=== PATIENT | male | born 1970 | race Caucasian/White ===

== ENCOUNTER 2018-07-09 12:27 | Emergency (ER) | payer BC ==
[2018-07-09 14:34] VITALS: BP 125/73
[2018-07-09] MEDS ORDERED: Ketorolac INJ* 60 MG/2 ML VIAL IM ONE (14:59)
--- NOTE | 2018-07-09 15:07 | UC ---
Back Pain HPI - HPI Summary HPI Summary: PATIENT WITH A HISTORY OF CHRONIC LOW BACK PAIN SINCE HIS TEENAGE YEARS PRESENTS WITH ABOUT ONE WEEK OF FLARE OF LOW BACK PAIN. HE STATES HE GETS ACUTE FLARES OF HIS CHRONIC BACK PAIN SEVERAL TIMES A YEAR. HE NORMALLY JUST RIDES IT OUT. TAKES OTC MEDICATIONS WHICH DON'T HELP VERY MUCH. PATIENT STATES THAT THIS TIME THE PAIN WAS VERY SEVERE AND HE DECIDED IT WAS TIME HE HAD IT EVALUATED. DENIES ANY NEW INJURY OR TRAUMA BUT STATES HE DID DO SOME PUSHUPS AND SITUPS AT HOME PRIOR TO ONSET OF SYMPTOMS. NO NUMBNESS/TINGLING. NO LOSS OF BOWEL OR BLADDER CONTROL. NO SADDLE ANESTHESIA. STATES HE HAS NOT HAD ANY IMAGING FOR THIS IN OVER 20 YEARS. PATIENT STATES HE IS A RECOVERING ALCOHOLIC AND DOES NOT WANT ANY NARCOTIC PAIN MEDICATION. - History of Current Complaint Chief Complaint: UCBackPain Stated Complaint: BACK PAIN Time Seen by Provider: 07/09/18 14:32 Hx Obtained From: Patient Onset/Duration: Gradual Onset, Lasting Days, Still Present Timing: Constant Severity Initially: Moderate Severity Currently: Moderate Pain Intensity: 8 Pain Scale Used: 0-10 Numeric Back Pain: Is Discrete @ - LOW BACK Character: Sharp Aggravating Factor(s): Movement Alleviating Factor(s): Rest, Position Associated Signs And Symptoms: Negative: Swelling, Redness, Bruising, Weakness, Numbness, Tingling, Flank Pain, Bladder Incontinence, Bowel Incontinence - Allergies/Home Medications Allergies/Adverse Reactions: Allergies Allergy/AdvReac Type Severity Reaction Status Date / Time No Known Allergies Allergy Verified 07/09/18 14:34 PMH/Surg Hx/FS Hx/Imm Hx - Additional Past Medical History Additional PMH: GOUT, SCOLIOSIS, CHRONIC BACK PAIN Endocrine History: Dyslipidemia Respiratory History: Asthma - Surgical History Surgical History: None - Family History Known Family History: Positive: Non-Contributory - Social History Alcohol Use: Occasionally Substance Use Type: None Smoking Status (MU): Never Smoked Tobacco Review of Systems All Other Systems Reviewed And Are Negative: Yes Constitutional: Positive: Negative Skin: Positive: Negative Respiratory: Positive: Negative Cardiovascular: Positive: Negative Gastrointestinal: Positive: Negative Musculoskeletal: Positive: Arthralgia, Decreased ROM, Myalgia Physical Exam Triage Information Reviewed: Yes Appearance: Well-Appearing, Well-Nourished, Pain Distress - WITH MVMT Vital Signs: Initial Vital Signs Temp 98 F 07/09/18 14:29 Pulse 51 07/09/18 14:29 Resp 16 07/09/18 14:29 BP 125/73 07/09/18 14:29 Pulse Ox 100 07/09/18 14:29 Vital Signs Reviewed: Yes Eyes: Positive: Conjunctiva Clear ENT: Positive: Hearing grossly normal Neck: Positive: Supple Respiratory: Positive: No respiratory distress, No accessory muscle use Cardiovascular: Positive: Pulses Normal Abdomen Description: Positive: Soft Musculoskeletal: Positive: No Edema, ROM Limited @ - BACK, Other: - NOT TENDER OVER SPINE OR PARASPINOUS MUSCLES. NON TENDER LIPOMA Neurological: Positive: Alert, Other: - NEG STRAIGHT LEG RAISE Psychological: Positive: Age Appropriate Behavior Skin: Negative: Rashes Diagnostics - Radiology LUMBARSACRAL XRAYS Radiology Interpretation Completed By: Radiologist Summary of Radiographic Findings: Multilevel mild degenerative spondylosis. Back Pain Course/Dx - Differential Dx/Diagnosis Provider Diagnosis: Acute exacerbation of chronic low back pain Discharge - Sign-Out/Discharge Documenting (check all that apply): Patient Departure All imaging exams completed and their final reports reviewed: Yes - Discharge Plan Condition: Stable Disposition: HOME Prescriptions: Cyclobenzaprine TAB* [Flexeril TAB*] 10 mg PO BID PRN #30 tab PRN Reason: Pain Meloxicam [Mobic] 7.5 mg PO BID PRN #30 tab PRN Reason: Pain Patient Education Materials: Acute Low Back Pain (ED), Chronic Back Pain (DC) Referrals: Leon Coelho MD [Primary Care Provider] - 1 Week Additional Instructions: LOW BACK XRAYS TODAY SHOW MULTILEVEL MILD DEGENERATIVE SPONDYLOSIS. FOLLOW-UP WITH YOUR PCP YOU MAY BENEFIT FROM MORE ADVANCED IMAGING. BASED ON WHAT THIS SHOWS I WOULD RECOMMEND MORE SPECIALIZED FOLLOW-UP WITH EITHER NEUROSURGERY OR THE [facility] IN [place]. YOU HAVE BEEN GIVEN A REFERRAL FOR PHYSICAL THERAPY TODAY WHICH YOU MAY USE AT THE FACILITY OF YOUR CHOICE. TAKE THE FLEXERIL AT NIGHT BEFORE YOU GO TO BED. YOU MAY TAKE IT DURING THE DAY WELL BUT BE AWARE THAT IT MAY MAKE YOU SLEEPY. TAKE THE MELOXICAM TWICE DAILY TO HELP WITH YOUR DISCOMFORT. IF ONE TABLET IS NOT EFFECTIVE YOU MAY TAKE 2 TABLETS AT THE SAME TIME BUT THEN YOU CAN ONLY TAKE IT ONCE DAILY. NO MORE THAN 2 TABLETS IN A 24-HOUR PERIOD. BE SURE TO GO THROUGH SLOW RANGE OF MOTION AND STRETCHING EXERCISES DAILY YOU ARE ABLE TO PREVENT STIFFENING UP AND MAKING THE DISCOMFORT WORSE. GO TO THE ED WITHOUT FAIL IF YOU DEVELOP NUMBNESS/TINGLING IN YOUR LEGS, NUMBNESS IN THE GENITAL REGION, LOSS OF BOWEL/BLADDER CONTROL, INTOLERABLE PAIN OR ANY OTHER CONCERNING SYMPTOMS. [facility] [address] [place], [place] [id number] - Billing Disposition and Condition Condition: STABLE Disposition: Home
== END 2018-07-09 15:48 | disposition home or self-care (01) ==
LOC: UCEAST 12:27
DX: M54.5 Low back pain (principal); G89.29 Other chronic pain; J45.909 Unspecified asthma, uncomplicated
CPT/HCPCS: 72110; 96372; 99212; G0463; J1885

== ENCOUNTER 2018-11-18 11:27 | Emergency (ER) | payer BC ==
[2018-11-18 11:37] VITALS: BP 128/81
--- NOTE | 2018-11-18 11:42 | UC ---
Throat Pain/Nasal Karl HPI - HPI Summary HPI Summary: 48 -year-old male with symptoms of an upper respiratory illness over the past 8 days however with the last 24-48 hours developing sinus pressure, postnasal drainage. He's been using Nasacort, Claritin, Josey pot without improvement. States last evening he had a mild fever. He is a nonsmoker however he does smoke marijuana occasionally. - History of Current Complaint Chief Complaint: UCGeneralIllness Stated Complaint: SINUS ISSUES Time Seen by Provider: 11/18/18 11:41 Hx Obtained From: Patient Onset/Duration: Gradual Onset Severity: Mild Pain Intensity: 3 Cough: None Associated Signs & Symptoms: Positive: Sinus Discomfort, Nasal Discharge Related History: Seasonal Allergies - Epiglottits Risk Factors Epiglottis Risk Factors: Negative - Allergies/Home Medications Allergies/Adverse Reactions: Allergies Allergy/AdvReac Type Severity Reaction Status Date / Time No Known Allergies Allergy Verified 11/18/18 11:37 Home Medications: Home Medications Cetirizine* [ZyrTEC 10 MG TAB*] 10 mg PO DAILY 11/18/18 [History Confirmed 11/18] Sod Chlor,Sod Bicarb/Neti Pot [Nasaflo Neti Pot Nasal Wa] 1 pow NA DAILY WITH MEAL 11/18/18 [History Confirmed 11/18/18] PMH/Surg Hx/FS Hx/Imm Hx Previously Healthy: Yes GI/ History: Other - Seasonal allergies - Surgical History Surgical History: None - Family History Known Family History: Positive: Non-Contributory - Social History Alcohol Use: Occasionally Substance Use Type: Marijuana Smoking Status (MU): Former Smoker Review of Systems All Other Systems Reviewed And Are Negative: Yes ENT: Positive: Nasal Discharge, Sinus Congestion, Sinus Pain/Tenderness - Postnasal drainage. Is Patient Immunocompromised?: No Physical Exam Triage Information Reviewed: Yes Appearance: Well-Appearing, No Pain Distress, Well-Nourished Vital Signs: Initial Vital Signs Temp 97.7 F 11/18/18 11:33 Pulse 55 11/18/18 11:33 Resp 18 11/18/18 11:33 BP 128/81 11/18/18 11:33 Pulse Ox 98 11/18/18 11:33 Vital Signs Reviewed: Yes Eye Exam: Normal ENT: Positive: Hearing grossly normal, Pharynx normal - Purulent yellow postnasal drainage., Nasal congestion, TMs normal, Sinus tenderness - Mildly tender over the maxillary sinuses bilaterally., Uvula midline. Negative: Trismus, Muffled voice, Hoarse voice Neck exam: Normal Respiratory Exam: Normal Cardiovascular Exam: Normal Abdominal Exam: Normal Bowel Sounds: Positive: Present Musculoskeletal Exam: Normal Neurological Exam: Normal Psychological Exam: Normal Skin Exam: Normal Throat Pain/Nasal Course/Dx - Course Course Of Treatment: I'm going to treat patient for a sinusitis. He can continue all his present medications. He is to follow-up with his primary care provider if no improvement in 4 or 5 days. - Differential Dx/Diagnosis Provider Diagnosis: Sinusitis Discharge - Sign-Out/Discharge Documenting (check all that apply): Patient Departure All imaging exams completed and their final reports reviewed: No Studies - Discharge Plan Condition: Fair Disposition: HOME Prescriptions: Amoxicillin PO (*) [Amoxicillin 875 MG (*)] 875 mg PO BID 10 Days #20 tab Patient Education Materials: Sinusitis (ED) Referrals: Leon Coelho MD [Primary Care Provider] - Additional Instructions: Increase fluids, continue all other present medications. Take the amoxicillin twice a day for 10 days. Follow-up with your primary care provider in 4 or 5 days if no improvement. - Billing Disposition and Condition Condition: FAIR Disposition: Home - Attestation Statements Provider Attestation: I was available for consult. This patient was seen by the JONAH. The patient was not presented to, seen by, or examined by me. -Onelia
== END 2018-11-18 11:55 | disposition home or self-care (01) ==
LOC: UCEAST 11:27
DX: J32.9 Chronic sinusitis, unspecified (principal); J30.2 Other seasonal allergic rhinitis; Z87.891 Personal history of nicotine dependence
CPT/HCPCS: 99212; G0463